=== PATIENT | male | born 1925 | race Caucasian/White ===

== ENCOUNTER 2016-06-05 19:52 | Inpatient (IN) | payer OTHER, MEDICARE ==
[~2016-06-05] VITALS: Ht 180.3 cm; Wt 71.4 kg
[~2016-06-05 19:52] MED LIST: ASCORBIC ACID500 M3 PO; CALCIUM 600 +1 EA15 PO; CENTRUM SILV1 TABLE1 PO; CINNAMON500 MG PO; CLARITHROMYCIN500 MG PO; COSAMIN DS PO; Calcium Carbonate/Vi PO; DORZOLAMIDE-TIM10 ML BOTH EYES; FISH OIL300 MG PO; Fish Oil PO; HYDROCHLOROTH12.5 M3 PO; L-ARGININE500 MG PO; LEVAQUIN750 MG PO; LISINOPRIL10 MG PO; LISINOPRIL2.5 MG PO; Levaquin PO; OMEGA-31000 M1 PO; PRAVACHOL10 MG PO; PRAVACHOL20 MG PO; RIFAMPIN300 MG PO; SPIRIVA1 INHALATI IH; TRAMADOL HCL50 MG PO; TRAVATAN 050 DROP/2. BOTH EYES; VITAMIN B-1250 MC3 PO; VITAMIN B-125000 MC1 PO; Vitamin B-12 PO; XALATAN2.5 ML BOTH EYES; ZESTORETIC,P1 TABLET PO; Zocor PO
[2016-06-05] MEDS ORDERED: SYMBICORT60 INHALAT IH (20:29)
[2016-06-05] MEDS ORDERED: CITRUCEL907 G1 PO (20:30)
[2016-06-05] MEDS ORDERED: LISINOPRIL-HCT1 EACH PO (20:37)
[2016-06-05] MEDS ORDERED: ALPRAZOLAM0.5 MG PO (20:38)
[2016-06-05] MEDS ORDERED: NORTRIPTYLINE H10 MG PO (20:39)
[2016-06-05] MEDS ORDERED: NADOLOL20 MG PO (20:39)
[2016-06-05 20:51] LABS: HEMATOCRIT 39.4 % (38.0-50.0); MCH 31.9 PG (29.0-34.0); MCV 96.8 FL (86-99); MEAN PLAT.VOLUME 10.2 uM^3 (9.0-12.4); PLATELET COUNT 220 K/uL (156-360); RBC DIS.WIDTH-CV 13.2 % (11.8-14.6); RBC DIS.WIDTH-SD 47.3 % (39-53); RED BLOOD COUNT 4.07 M/uL (4.00-5.50); WHITE BLOOD COUNT 13.3 K/uL (4.1-10.2)
[2016-06-05 21:07] LABS: CHLORIDE 103 mEq/L (99-109); POTASSIUM 4.5 mEq/L (3.7-5.4); SODIUM 137 mEq/L (136-147)
[2016-06-05 21:09] LABS: GLUCOSE 111 mg/dL (70-99)
[2016-06-05 21:10] LABS: ANION GAP 13 MEQ/L (2-14)
[2016-06-05 21:12] LABS: TROP-I INTERPRETATION NEGATIVE; TROPONIN-I 0.03 ng/mL (0.0-0.30)
[2016-06-05 21:13] LABS: GFR ESTIMATE (CALCULATED) 47 mL/min/
[2016-06-05 21:14] LABS: UREA NITROGEN (BUN) 43 mg/dL (9-23)
[2016-06-05 21:18] LABS: ADD MIUA? YES; BILIRUBIN NEGATIVE; BLOOD SMALL; GLUCOSE (STRIP) NEGATIVE; KETONES NEGATIVE; LEUKOCYTES NEGATIVE; NITRITE NEGATIVE; PROTEIN (STRIP) NEGATIVE; SPECIFIC GRAVITY 1.015 (1.000-1.030); UROBILINOGEN 0.2 MG/DL (0.2-1.0)
[2016-06-05 21:31] LABS: COLOR YELLOW ((YELLOW))
[2016-06-05 21:59] LABS: INFLUENZA A VIRAL ANTIGEN NEGATIVE; INFLUENZA B VIRAL ANTIGEN NEGATIVE
[2016-06-05 22:17] LABS: RED BLOOD CELLS NONE SEEN /HPF (0-5); WHITE BLOOD CELLS RARE /HPF (0-5)
[2016-06-05 22:18] LABS: BACTERIA RARE /HPF; CASTS PRESENT /LPF; CRYSTALS NONE SEEN; EPITHELIAL CELLS NONE SEEN /HPF; RENAL EPITHELIAL CELLS RARE /HPF; UCUL ADDED? NO
[2016-06-05 22:18] LABS: CREATINE KINASE 461 IU/L (1-294)
[2016-06-05 22:19] LABS: HYALINE CASTS 15-20 /LPF
[2016-06-05 22:32] LABS: MUCUS 1+ /LPF
[2016-06-05] MEDS ORDERED: CALCIUM 600 +1 EA16 PO (22:51)
[2016-06-05] MEDS ORDERED: PROVENTIL HFA6.7 GM IH (22:54)
[2016-06-06 01:17] VITALS: BP 110/59
[2016-06-06 04:00] VITALS: BP 112/53
[2016-06-06 08:03] VITALS: BP 148/67
[2016-06-06 08:08] LABS: INTERNAL CONTROL VALID? YES
[2016-06-06 11:15] VITALS: BP 130/63
[2016-06-06 19:31] VITALS: BP 161/77
[2016-06-06 21:45] VITALS: BP 111/62
[2016-06-07 03:32] VITALS: BP 118/78
[2016-06-07 05:52] LABS: EOSINOPHIL (%) 0.6 % (0-5); EOSINOPHIL COUNT 0.1 K/uL (0-0.3); HEMATOCRIT 33.6 % (38.0-50.0); IMMATURE GRANULOCYTE (%) 0.3 % (0.0-0.7); INSTRUMENT ABS NEUTROPHIL CT 8.9 K/uL; LYMPHOCYTE COUNT 1.4 K/uL (1.0-2.8); MCH 31.6 PG (29.0-34.0); MCHC 32.7 G/DL (30.0-36.0); MCV 96.6 FL (86-99); MEAN PLAT.VOLUME 10.8 uM^3 (9.0-12.4); MONOCYTE (%) 14.8 % (3-12); MONOCYTE COUNT 1.8 K/uL (0-0.8); NEUTROPHIL (%) 72.9 % (45-76); NEUTROPHIL COUNT 8.9 K/uL (1.8-6.4); PLATELET COUNT 203 K/uL (156-360); RBC DIS.WIDTH-CV 13.4 % (11.8-14.6); RBC DIS.WIDTH-SD 47.8 % (39-53); RED BLOOD COUNT 3.48 M/uL (4.00-5.50); WHITE BLOOD COUNT 12.1 K/uL (4.1-10.2)
[2016-06-07 06:00] LABS: ANION GAP 8 MEQ/L (2-14); CHLORIDE 106 MEQ/L (99-109); CREATINE KINASE 211 IU/L (1-294); GFR ESTIMATE (CALCULATED) > 59 mL/min/; GLUCOSE 84 mg/dL (70-99); POTASSIUM 3.9 MEQ/L (3.7-5.4); SAMPLE HEMOLYSIS CHECK 0; SAMPLE ICTERIC CHECK 0; SAMPLE LIPEMIA CHECK 0; SODIUM 137 MEQ/L (136-147); UREA NITROGEN (BUN) 32 mg/dL (9-23)
[2016-06-07 08:14] VITALS: BP 115/66
[2016-06-07 12:07] VITALS: BP 135/66
[2016-06-07 19:21] LABS: C DIFF TOXIN NEGATIVE (NEGATIVE)
[2016-06-07 19:25] LABS: PROBE CHECK PASS; SPECIMEN PROCESSING CONTROL PASS
[2016-06-07 20:11] VITALS: BP 135/67
[2016-06-07 23:15] VITALS: BP 134/69
[2016-06-08] VITALS (8 sets, daily range): BP systolic 90–170; BP diastolic 52–96
[2016-06-08 06:54] LABS: HEMATOCRIT 36.4 % (38.0-50.0); MCH 31.7 PG (29.0-34.0); MCV 96.3 FL (86-99); MEAN PLAT.VOLUME 10.9 uM^3 (9.0-12.4); PLATELET COUNT 224 K/uL (156-360); RBC DIS.WIDTH-CV 13.3 % (11.8-14.6); RBC DIS.WIDTH-SD 47.3 % (39-53); RED BLOOD COUNT 3.78 M/uL (4.00-5.50); WHITE BLOOD COUNT 11.8 K/uL (4.1-10.2)
[2016-06-08 07:24] LABS: ANION GAP 8 MEQ/L (2-14); CHLORIDE 103 MEQ/L (99-109); GFR ESTIMATE (CALCULATED) > 59 mL/min/; GLUCOSE 85 mg/dL (70-99); POTASSIUM 4.6 MEQ/L (3.7-5.4); SAMPLE HEMOLYSIS CHECK 0; SAMPLE ICTERIC CHECK 0; SAMPLE LIPEMIA CHECK 0; SODIUM 137 MEQ/L (136-147); UREA NITROGEN (BUN) 30 mg/dL (9-23)
[2016-06-08 21:25] LABS: HEMATOCRIT 37.4 % (38.0-50.0); RED BLOOD COUNT 3.85 M/uL (4.00-5.50); WHITE BLOOD COUNT 11.6 K/uL (4.1-10.2)
[2016-06-08 21:26] LABS: MCH 32.2 PG (29.0-34.0); MCHC 33.2 G/DL (30.0-36.0); MCV 97.1 FL (86-99); RBC DIS.WIDTH-CV 13.3 % (11.8-14.6); RBC DIS.WIDTH-SD 47.8 % (39-53)
[2016-06-08 21:35] LABS: CHLORIDE 103 mEq/L (99-109); POTASSIUM 4.2 mEq/L (3.7-5.4); SODIUM 134 mEq/L (136-147)
[2016-06-08 21:39] LABS: ANION GAP 8 MEQ/L (2-14); TOTAL BILIRUBIN 0.7 mg/dL (0.0-1.0)
[2016-06-08 21:41] LABS: ALKALINE PHOSPHATASE 93 IU/L (3-129); GFR ESTIMATE (CALCULATED) 55 mL/min/
[2016-06-08 21:42] LABS: UREA NITROGEN (BUN) 34 mg/dL (9-23)
[2016-06-08 21:46] LABS: TROP-I INTERPRETATION NEGATIVE; TROPONIN-I 0.03 ng/mL (0.0-0.30)
[2016-06-08 21:48] LABS: GLUCOSE 145 mg/dL (70-99)
[2016-06-08 22:15] LABS: MEAN PLAT.VOLUME 10.4 uM^3 (9.0-12.4); PLATELET COUNT 228 K/uL (156-360)
[2016-06-08 22:56] LABS: METH RESISTANT S AUREUS PCR NEGATIVE (NEGATIVE)
[2016-06-08 23:00] LABS: PROBE CHECK PASS; SPECIMEN PROCESSING CONTROL PASS
[2016-06-09] VITALS (8 sets, daily range): BP systolic 100–160; BP diastolic 59–109
[2016-06-09 10:09] LABS: HEMATOCRIT 36.7 % (38.0-50.0); MCH 31.8 PG (29.0-34.0); MCV 96.6 FL (86-99); MEAN PLAT.VOLUME 10.5 uM^3 (9.0-12.4); PLATELET COUNT 235 K/uL (156-360); RBC DIS.WIDTH-SD 46.5 % (39-53); WHITE BLOOD COUNT 13.8 K/uL (4.1-10.2)
[2016-06-09 10:55] LABS: ANION GAP 11 MEQ/L (2-14); CHLORIDE 105 MEQ/L (99-109); GFR ESTIMATE (CALCULATED) > 59 mL/min/; POTASSIUM 3.9 MEQ/L (3.7-5.4); SAMPLE HEMOLYSIS CHECK 0; SAMPLE ICTERIC CHECK 0; SAMPLE LIPEMIA CHECK 0; SODIUM 138 MEQ/L (136-147); UREA NITROGEN (BUN) 34 mg/dL (9-23)
[2016-06-09 10:56] LABS: GLUCOSE 97 mg/dL (70-99)
[2016-06-09 11:07] LABS: ADD MIUA? YES; BILIRUBIN NEGATIVE; BLOOD SMALL; COLOR YELLOW ((YELLOW)); GLUCOSE (STRIP) NEGATIVE; KETONES NEGATIVE; LEUKOCYTES NEGATIVE; NITRITE NEGATIVE; PROTEIN (STRIP) NEGATIVE; SPECIFIC GRAVITY 1.011 (1.000-1.030); UROBILINOGEN 0.2 MG/DL (0.2-1.0)
[2016-06-09 12:16] LABS: BACTERIA NONE SEEN /HPF; EPITHELIAL CELLS RARE /HPF; MUCUS TRACE /LPF; RED BLOOD CELLS 0-5 /HPF (0-5); UCUL ADDED? NO; WHITE BLOOD CELLS 0-5 /HPF (0-5)
[2016-06-10] VITALS (7 sets, daily range): BP systolic 00–161; BP diastolic 00–121
[2016-06-10 05:56] LABS: HEMATOCRIT 37.3 % (38.0-50.0); MCH 31.7 PG (29.0-34.0); MCHC 33.2 G/DL (30.0-36.0); MCV 95.4 FL (86-99); MEAN PLAT.VOLUME 10.4 uM^3 (9.0-12.4); PLATELET COUNT 287 K/uL (156-360); RBC DIS.WIDTH-CV 13.1 % (11.8-14.6); RBC DIS.WIDTH-SD 46.4 % (39-53); RED BLOOD COUNT 3.91 M/uL (4.00-5.50); WHITE BLOOD COUNT 15.6 K/uL (4.1-10.2)
[2016-06-10 06:24] LABS: ANION GAP 11 MEQ/L (2-14); CHLORIDE 106 MEQ/L (99-109); GFR ESTIMATE (CALCULATED) > 59 mL/min/; GLUCOSE 104 mg/dL (70-99); POTASSIUM 4.4 MEQ/L (3.7-5.4); SAMPLE HEMOLYSIS CHECK 0; SAMPLE ICTERIC CHECK 0; SAMPLE LIPEMIA CHECK 0; SODIUM 139 MEQ/L (136-147); UREA NITROGEN (BUN) 36 mg/dL (9-23)
[2016-06-10 10:32] LABS: BASE EXCESS -3.9 mEq/L (-3 to +3); BICARBONATE 19.2 mEq/L (22-26); CARBOXY HGB 2.2 % (0-5); COMMENTS - BLOOD GASES A+C+; FI02 21 %; METHEMOGLOBIN 1.3 % (0-1.5); PCO2 29 mm Hg (35-45); PO2 71 mm Hg (80-100); SITE LR; pH 7.43 (7.35-7.45)
[2016-06-10 10:33] LABS: TOTAL RESP RATE 20 resp/min
== END 2016-06-11 23:00 | DRG 193 ==
LOC: EME → EDBD 19:52 → EDOF 06-06 00:21 → 4WEST 06-06 00:21 → 5SOUTH 06-06 00:21 → 4WEST 06-08 21:34 → 5EAST 06-10 16:44
PROVIDERS: Emergency Medicine; Hospitalist; Internal Medicine; Physician Assistant Medical
DX: J13 Pneumonia due to Streptococcus pneumoniae (principal); G93.41 Metabolic encephalopathy; M62.82 Rhabdomyolysis; N17.9 Acute kidney failure, unspecified; F33.9 Major depressive disorder, recurrent, unspecified; Z66 Do not resuscitate; Z51.5 Encounter for palliative care; I48.3 Typical atrial flutter; E86.0 Dehydration; I10 Essential (primary) hypertension; A31.0 Pulmonary mycobacterial infection; D64.9 Anemia, unspecified; I48.0 Paroxysmal atrial fibrillation; M48.06 Spinal stenosis, lumbar region; R33.9 Retention of urine, unspecified; G25.0 Essential tremor; M17.11 Unilateral primary osteoarthritis, right knee; R00.1 Bradycardia, unspecified; M79.661 Pain in right lower leg; R32 Unspecified urinary incontinence; I73.9 Peripheral vascular disease, unspecified; R19.7 Diarrhea, unspecified; H91.93 Unspecified hearing loss, bilateral; I25.10 Atherosclerotic heart disease of native coronary artery without angina pectoris; E78.5 Hyperlipidemia, unspecified; J84.10 Pulmonary fibrosis, unspecified; J43.1 Panlobular emphysema; Z60.2 Problems related to living alone; Z91.81 History of falling; Z87.891 Personal history of nicotine dependence; Z88.6 Allergy status to analgesic agent; Z82.49 Family history of ischemic heart disease and other diseases of the circulatory system
CPT/HCPCS: 36600; 70450; 70551; 71010; 71020; 71250; 72148; 73552; 73590; 74000; 80048; 80053; 81003; 82550; 82550 91; 82803; 83605; 84484; 85025; 85027; 87040; 87070; 87205; 87449; 87493; 87502; 87641; 93005; 93925; 93970; 94640; 94640 76; 94799; 99202; 99281; 99285; J0456; J0461; J0692; J1630; J1644; J2060; J2270; J2543; J3370; J7030; J7040; J7042; J7050